=== PATIENT | male | born 1965 | race Caucasian/White ===

== ENCOUNTER 2017-03-29 20:35 | Emergency (ER) | payer BC, OTHER ==
[~2017-03-29] VITALS: Ht 172.7 cm; Wt 63.5 kg
[~2017-03-29 20:35] MED LIST: NORCO 5-325 TA1 EACH PO
[2017-03-29] MEDS ORDERED: HYDROCODONE-AP1 EAC6 PO (22:05)
[2017-03-29 22:41] VITALS: BP 115/71
== END 2017-03-29 22:41 | disposition home or self-care (01) ==
LOC: ER 20:35
DX: S86.911A Strain of unspecified muscle(s) and tendon(s) at lower leg level, right leg, initial encounter (principal); Z98.890 Other specified postprocedural states; W18.39XA Other fall on same level, initial encounter; Y93.89 Activity, other specified; Y92.89 Other specified places as the place of occurrence of the external cause; Y99.8 Other external cause status